=== PATIENT | male | born 1950 | race Two or more races ===

== ENCOUNTER → 2024-03-28 15:16 | Outpatient (REF) | payer OTHER, SELFPAY | LOC: RAD 15:16 | PROVIDERS: ATTENDING PHYSICIAN Emergency Medicine | DX: M79.662 Pain in left lower leg (principal); R25.2 Cramp and spasm | CPT/HCPCS: 93971 ==

== ENCOUNTER → 2024-08-08 10:41 | Outpatient (REF) | payer OTHER, SELFPAY | LOC: RAD 10:41 | PROVIDERS: ATTENDING PHYSICIAN Emergency Medicine | DX: E11.69 Type 2 diabetes mellitus with other specified complication (principal) | CPT/HCPCS: 76536 ==

== ENCOUNTER → 2024-11-03 14:52 | Outpatient (REF) | payer OTHER, SELFPAY | LOC: RAD 14:52 | PROVIDERS: ATTENDING PHYSICIAN Physician Assistant Medical; FAMILY PHYSICIAN Emergency Medicine | DX: R22.1 Localized swelling, mass and lump, neck (principal) | CPT/HCPCS: 70491; Q9967 ==

== ENCOUNTER → 2024-11-10 07:50 | Outpatient (REF) | payer OTHER, SELFPAY | LOC: MRI 07:50 | PROVIDERS: ATTENDING PHYSICIAN Physician Assistant Medical | DX: K11.8 Other diseases of salivary glands (principal) | CPT/HCPCS: 70543; A9575 ==

== ENCOUNTER → 2024-12-16 12:08 | Outpatient (REF) | payer OTHER, SELFPAY ==
[2024-12-16 12:45] VITALS: BP 111/75; BP_SYST 75
== END ==
LOC: RADI 12:08
PROVIDERS: ATTENDING PHYSICIAN Otolaryngology; FAMILY PHYSICIAN Emergency Medicine
DX: D11.0 Benign neoplasm of parotid gland (principal)
CPT/HCPCS: 42400; 76942; 88173; 88305; 88313; 88333; 88341; 88342